=== PATIENT | female | born 1970 | race Caucasian/White ===

== ENCOUNTER 2017-08-02 06:35 | Day surgery (SDC) | payer OTHER, BC ==
[2017-08-02] MEDS ORDERED: PROPOFOL 20 ML (07:28)
[2017-08-02] MEDS ORDERED: CEFAZOLIN 1 GM INJ (07:28)
[2017-08-02] MEDS ORDERED: MIDAZOLAM 1 MG/ML 2 ML INJ (07:28)
[2017-08-02] MEDS ORDERED: FENTAnyl 50 MCG/ML VIAL (07:30)
[2017-08-02] MEDS ORDERED: DEXAMETHASONE 4 MG/ML 1 ML INJ (07:36)
[2017-08-02] MEDS ORDERED: METOCLOPRAMIDE 10 MG INJ (07:36)
[2017-08-02] MEDS ORDERED: ONDANSETRON 4 MG INJ (07:36)
[2017-08-02] MEDS ORDERED: KETOROLAC 30 MG INJ (07:36)
[2017-08-02] MEDS ORDERED: LACTATED RINGER'S 1,000 ML IV (08:19)
[2017-08-02] MEDS ORDERED: IBUPROFEN 600 MG TAB PO (08:30)
[2017-08-02] MEDS ORDERED: OXYCODONE/ACETAMINOPHEN (5/325) TAB PO ×4 (08:30→09:30)
[2017-08-02] MEDS ORDERED: ACETAMINOPHEN 325 MG TAB PO (08:30)
[2017-08-02] MEDS: ONDANSETRON 4 MG INJ IV (09:05)
[2017-08-02] MEDS: morphine 2 MG INJ IV (09:05)
[2017-08-02] MEDS ORDERED: LABETALOL HCL 20MG INJ IV (09:30)
[2017-08-02] MEDS ORDERED: FENTAnyl 50 MCG/ML VIAL IV ×2 (09:30)
[2017-08-02] MEDS ORDERED: KETOROLAC 30 MG INJ IV (09:30)
[2017-08-02] MEDS ORDERED: METOCLOPRAMIDE 10 MG INJ IV (09:30)
[2017-08-02] MEDS ORDERED: DIPHENHYDRAMINE 50 MG INJ IV (09:30)
[2017-08-02] MEDS ORDERED: ONDANSETRON 4 MG INJ IV (09:30)
[2017-08-02] MEDS ORDERED: HYDROmorphONE (0.2 MG/ML) 10ML SYG IV ×2 (09:30)
[2017-08-02] MEDS ORDERED: hydrALAzine 20 MG INJ IV (09:30)
[2017-08-02] MEDS ORDERED: EPHEDrine SULFATE 50 MG/5 ML SYG IV (09:30)
[2017-08-02] MEDS ORDERED: MEPERIDINE 25 MG INJ IV (09:30)
== END 2017-08-02 10:30 | disposition home or self-care (01) ==
LOC: SDS 06:35
DX: N93.9 Abnormal uterine and vaginal bleeding, unspecified (principal); R93.8 Abnormal findings on diagnostic imaging of other specified body structures; I10 Essential (primary) hypertension
CPT/HCPCS: 58558; 86850; 86900; 86901; 88305